=== PATIENT | male | born 1930 | race Caucasian/White ===

== ENCOUNTER 2016-03-01 11:20 | Day surgery (SDC) | payer MEDICARE ==
[~2016-03-01] VITALS: Ht 167.6 cm; Wt 67.0 kg
[~2016-03-01 11:20] MED LIST: 0.9% Sodium Chloride 1,000 ML IV SCH; ASPI-973 PO; CARV25TA2 PO; DOCU50CA7 PO; DOFE0.25 PO; IRON18TA PO; LISI-571 PO; LOVA20TA PO; MULT-56 PO; Sodium Chloride LOK Flush 10 mL Syringe IV PRN; fentaNYL-PF 50 mCg/mL 2 mL Inj IVPUSH PRN
[2016-03-01 11:46] VITALS: BP 128/84; PULSE 59; RESP 16; O2SAT 92
[2016-03-01 14:08] VITALS: BP 129/66; PULSE 97; RESP 12; O2SAT 92
[2016-03-01 14:17] VITALS: BP 117/68; PULSE 60; RESP 16; O2SAT 100
[2016-03-01 14:31] VITALS: BP 118/71; PULSE 67; RESP 14; O2SAT 99
--- NOTE | 2016-03-01 14:32 | ENDO ---
[address] [address] ENDOSCOPY PROCEDURE PATIENT: KADIE KELLY : 1930 MR#: [id number] ADMIT: 03/01/2016 JOB ID: [id number] DATE: 03/01/2016 PRIMARY PROVIDER: Kiki Jacobsen DO PROCEDURE: Colonoscopy with hot snare polypectomy and cold snare polypectomy. 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 EQUIPMENT: PCFH 180 AL. SEDATION: 1. 2 mg Versed. 2. 50 mcg fentanyl. COMPLICATIONS: None identified. BOWEL PREPARATION: Adequate. PROCEDURAL INFORMATION: After the risks and benefits were explained, written and verbal informed consent was obtained. The patient was brought into the endoscopy suite and placed into the left lateral decubitus position. Sedation was achieved using the above-stated medications with the addition of oxygen via nasal cannula. A digital rectal examination was accomplished and apart from some [id number] internal hemorrhoids, no other significant pathology was appreciated. The scope was introduced into the rectum and advanced under direct visualization to the level of the cecum, as identified by the appendiceal orifice and ileocecal valve. The scope was slowly withdrawn to carefully examine the mucosa for any defects or lesions. Retroflexed views were avoided in the rectum. Multiple direct views were made through the dentate line for exclusion of pathology. The colon was decompressed. The scope removed from the patient who tolerated the procedure well. FINDINGS: Some moderate diverticulosis was seen in the left colon. In the proximal transverse, there was a diminutive polyp removed with cold snare. There was a small polyp perhaps 5 mm, removed with hot snare and then a larger perhaps 8-9 mm polyp removed with hot snare. All of these were submitted in the same specimen jar. There was a very small nonbleeding AVM seen in the cecum. No other significant pathology was appreciated throughout. ENDOSCOPIC DIAGNOSES: 1. Colon polyps. 2. Diverticulosis. 3. Hemorrhoids. 4. Nonbleeding cecal small arteriovenous malformation. RECOMMENDATIONS: 1. Await histopathology. 2. No sinister findings were identified in the colon today. Based on today's examination, I suspect this probably originated from the moderately engorged hemorrhoids.
--- NOTE | 2016-03-03 14:05 | PATH ---
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 ICD10 CODE D12.3 GROSS DESCRIPTION: The specimen is received in one formalin filled container labeled with the patient's name, sublabeled "transverse colon polyps" and consists of multiple portions of tissue which aggregate to 1.5 x 1.2 x 0.5 CM. The specimen is entirely submitted in one cassette. 03/02/2016 [facility] MICRO DESCRIPTION: See diagnosis. ICD-9 CODES: CPT CODES: 1: 91761 Electronically Signed Out Antony Price MD [facility] [address], [place] [address] Technical component performed at [facility], [facility] [address], [place], [address]
== END 2016-03-01 23:59 | disposition home or self-care (01) ==
LOC: END 11:20
PROVIDERS: ATTEND Internal Medicine Gastroenterology
DX: D12.3 Benign neoplasm of transverse colon (principal); K57.30 Diverticulosis of large intestine without perforation or abscess without bleeding; K64.8 Other hemorrhoids; Q45.8 Other specified congenital malformations of digestive system; Z86.010 Personal history of colon polyps; I47.2 Ventricular tachycardia; E78.5 Hyperlipidemia, unspecified; K21.9 Gastro-esophageal reflux disease without esophagitis; I50.9 Heart failure, unspecified; Z95.810 Presence of automatic (implantable) cardiac defibrillator; I73.00 Raynaud's syndrome without gangrene; Z79.82 Long term (current) use of aspirin
CPT/HCPCS: 45385; J2250; J7030